=== PATIENT | female | born 1995 | race Caucasian/White ===

== ENCOUNTER → 2018-08-29 | Outpatient (CLI) | payer OTHER | LOC: COL.RAD 14:41 | DX: R42 Dizziness and giddiness (principal); R51 Headache ==

== ENCOUNTER → 2018-09-27 | Outpatient (CLI) | payer OTHER | LOC: COL.RAD 07:18 | DX: G93.9 Disorder of brain, unspecified (principal) | CPT/HCPCS: A9585 ==